=== PATIENT | male | born 1995 ===

== ENCOUNTER 2017-10-23 18:26 | Emergency (ER) | payer OTHER ==
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
--- NOTE | 2017-10-25 08:01 | CR ---
Cervical spine: AP, lateral, odontoid and swimmer's views of the cervical spine were obtained. Comparison: No previous study. Vertebral body heights and disc spaces are maintained. Prevertebral soft tissues are normal. No subluxation or fracture is seen. Impression: 1. No abnormality is identified on four-view cervical spine exam. Diagnostic code #1
== END 2017-10-23 19:55 | disposition home or self-care (01) ==
LOC: JD.ED 18:26
DX: S16.1XXA Strain of muscle, fascia and tendon at neck level, initial encounter (principal); V59.88XA Occupant (driver) (passenger) of pick-up truck or van injured in other specified transport accidents, initial encounter; Y92.410 Unspecified street and highway as the place of occurrence of the external cause
CPT/HCPCS: 72040; 72040-26; 99284